=== PATIENT | male | born 1990 | race Two or more races ===

== ENCOUNTER 2018-04-07 17:00 | Emergency (ER) | payer MEDICAID ==
[2018-04-07] MEDS: HYDROCODONE/APAP (5/325) TAB PO (18:53)
[2018-04-07] MEDS: DIPHTH/TET/ACEL PERTUSS (ADULT) 0.5 ML VIAL IM* (18:54)
[2018-04-07] MEDS: LIDOCAINE 1% (MDV) 10 ML INJ INFIL (19:31)
== END 2018-04-07 20:31 | disposition home or self-care (01) ==
LOC: FTE 17:00
DX: S01.21XA Laceration without foreign body of nose, initial encounter (principal); S09.90XA Unspecified injury of head, initial encounter; S39.92XA Unspecified injury of lower back, initial encounter; W11.XXXA Fall on and from ladder, initial encounter; Y92.89 Other specified places as the place of occurrence of the external cause; Z23 Encounter for immunization
CPT/HCPCS: 12011; 70450; 70486; 72072; 72100; 72125; 90471; 90715; 99285-25

== ENCOUNTER 2018-04-10 08:23 | Emergency (ER) | payer OTHER, MEDICAID ==
[2018-04-10] MEDS: LIDOCAINE 1% (MDV) 10 ML INJ INJ (08:37)
[2018-04-10] MEDS: LORAZEPAM 1 MG TAB PO (09:19)
[2018-04-10] MEDS: IBUPROFEN 600 MG TAB PO (09:19)
== END 2018-04-10 09:30 ==
LOC: E/R 08:23
DX: T75.4XXA Electrocution, initial encounter (principal); R00.0 Tachycardia, unspecified; S31.040A Puncture wound with foreign body of lower back and pelvis without penetration into retroperitoneum, initial encounter; R40.2142 Coma scale, eyes open, spontaneous, at arrival to emergency department; R40.2252 Coma scale, best verbal response, oriented, at arrival to emergency department; R40.2362 Coma scale, best motor response, obeys commands, at arrival to emergency department; X58.XXXA Exposure to other specified factors, initial encounter; Y92.9 Unspecified place or not applicable
CPT/HCPCS: 99283